=== PATIENT | male | born 1930 | race Caucasian/White ===

== ENCOUNTER 2021-06-01 10:26 | Inpatient (IN) | payer OTHER ==
[2021-06-01] MEDS ORDERED: ACETAMINOPHEN 1000 MG/100 ML BAG IVPB ONE (12:29)
[2021-06-01] MEDS ORDERED: VANCOMYCIN 1 GM in D5W (PRE-DOCKED) 1,000 MG/250 ML IVPB ONE (12:35)
[2021-06-01] MEDS ORDERED: ACETAMINOPHEN INJECTION 100 ML IVPB ONE (12:57)
[2021-06-01] MEDS ORDERED: VANCOMYCIN 1 GRAM (PRE-DOCKED) 1,000 MG/250 ML BAG IVPB ONE (12:57)
[2021-06-01 13:04] LABS: INR 1.26 (0.83-1.09); PROTHROMBIN TIME (PATIENT) 14.5 SEC (9.7-13.0)
[2021-06-01 13:07] LABS: ACTIVATED PTT 34.6 SECONDS (25.2-36.5)
[2021-06-01 13:23] LABS: ALBUMIN 3.9 g/dl (3.4-5.0); BLOOD UREA NITROGEN 15.5 mg/dL (7-18)
[2021-06-01 13:28] LABS: BILIRUBIN,TOTAL 0.6 mg/dL (0.2-1); TOT PROT 7.4 g/dl (6.4-8.2)
[2021-06-01 13:54] LABS: BASO % 0.4 % (0-2.0); EOS % 0.9 % (0-4.5); HEMATOCRIT 41.8 % (35.4-49); HEMOGLOBIN 13.7 GM/dL (11.7-16.9); LYMPH % 18.3 % (8-40); MCH 27.8 pg (25.7-33.7); MCHC 32.7 g/dl (32.0-35.9); MEAN CELL VOLUME 84.9 fl (80-96); MEAN PLT VOLUME 8.7 fl (7.5-11.1); MONO % 7.7 % (3.8-10.2); NEUT % 72.7 % (42.8-82.8); PLATELET COUNT 250 10^3/uL (134-434); RBC 4.92 M/mm3 (4.00-5.60); RDW 13.8 % (11.9-15.9); WHITE BLOOD COUNT 6.7 K/mm3 (4.0-10.0)
[2021-06-01 18:46] LABS: EPI CELLS 1 /uL (0-25.1); HYALINE CASTS 0 /uL (0-3.1); URINE APPEARANCE CLEAR; URINE BACTERIA 7 /uL (0-1359); URINE BILIRUBIN NEGATIVE (NEGATIVE); URINE COLOR YELLOW; URINE GLUCOSE (UA) NEGATIVE (NEGATIVE); URINE KETONE NEGATIVE (NEGATIVE); URINE LEUK ESTERASE NEGATIVE (NEGATIVE); URINE NITRITE NEGATIVE (NEGATIVE); URINE PROTEIN NEGATIVE (NEGATIVE); URINE RBC 45 /uL (0-23.9); URINE UROBILINOGEN 0.2 mg/dL (0.2-1.0); URINE WBC 0 /uL (0-25.8)
[2021-06-01] MEDS ORDERED: SODIUM CHLORIDE 1,000 ML IV SCH (19:00)
[2021-06-01] MEDS: ATORVASTATIN CA 10 MG TABLET (FP) PO SCH (22:02)
[2021-06-02] MEDS: VANCOMYCIN/WATER BAGS 1,250 MG/250 ML BAG IVPB SCH ×2 (01:07→01:15)
[2021-06-02 02:55] VITALS: BMI 28.9
[2021-06-02] MEDS: LEVOTHYROXINE NA 75 MCG TABLET (FP) PO SCH (06:41)
[2021-06-02 08:55] LABS: BASO % 1.1 % (0-2.0); EOS % 2.7 % (0-4.5); HEMATOCRIT 41.9 % (35.4-49); HEMOGLOBIN 13.9 GM/dL (11.7-16.9); LYMPH % 30.5 % (8-40); MCH 28.4 pg (25.7-33.7); MCHC 33.3 g/dl (32.0-35.9); MEAN CELL VOLUME 85.2 fl (80-96); MEAN PLT VOLUME 8.2 fl (7.5-11.1); NEUT % 56.7 % (42.8-82.8); PLATELET COUNT 213 10^3/uL (134-434); RBC 4.92 M/mm3 (4.00-5.60); WHITE BLOOD COUNT 4.7 K/mm3 (4.0-10.0)
[2021-06-02 09:11] LABS: CALCIUM 8.9 mg/dL (8.5-10.1)
[2021-06-02 09:12] LABS: ALBUMIN 3.5 g/dl (3.4-5.0); BLOOD UREA NITROGEN 11.2 mg/dL (7-18); MAGNESIUM 2.3 mg/dL (1.8-2.4)
[2021-06-02 09:13] LABS: PHOSPHOROUS 3.8 mg/dL (2.5-4.9)
[2021-06-02 09:14] LABS: BILIRUBIN,TOTAL 0.8 mg/dL (0.2-1); TOT PROT 6.8 g/dl (6.4-8.2)
[2021-06-02 09:15] LABS: CREATININE 0.8 mg/dL (0.55-1.3)
[2021-06-02] MEDS ORDERED: RIVAROXABAN 15 MG TABLET PO SCH (10:00)
[2021-06-02] MEDS ORDERED: PATIENT'S OWN MEDICATION (NON-FORMULARY) (Amlodipine Besylate/Benazepril [Amlodipine-Benaz PO SCH (10:00)
[2021-06-02] MEDS: FINASTERIDE 5 MG TABLET (FP) PO SCH (10:45)
[2021-06-02] MEDS: LISINOPRIL 20 MG TABLET PO SCH (10:45)
[2021-06-02] MEDS ORDERED: PIPERACILLIN/TAZOB 3.375 GM 3.375 GM in DEXTROSE 5%-WATER - 50 ML IVPB SCH ×2 (10:45→11:30)
[2021-06-02] MEDS: COLLAGENASE CLOSTRIDIUM HIST. 30 GRAMS TUBE TP SCH (10:45)
[2021-06-02] MEDS: amLODIPine BESYLATE 5 MG TABLET (FP) PO SCH (10:45)
[2021-06-02] MEDS: FAMOTIDINE 20 MG TABLET PO SCH (10:45)
[2021-06-02] MEDS: VANCOMYCIN/WATER 1,250 MG/250 ML BAG IVPB SCH (11:15)
[2021-06-02] MEDS ORDERED: DEXTROSE 5%-WATER - 50 ML IVPB ONE ×2 (11:50→17:41)
[2021-06-02] MEDS ORDERED: PIPERACILLIN/TAZOBACTAM 3.375 GM VIAL IVPB ONE ×2 (11:50→17:41)
[2021-06-02] MEDS: PIPERACILLIN/TAZOB 3.375 GM 3.375 GM in DEXTROSE 5%-WATER - 50 ML IVPB SCH (18:26)
[2021-06-02] MEDS: ATORVASTATIN CA 10 MG TABLET (FP) PO SCH (21:41)
[2021-06-03] MEDS ORDERED: PIPERACILLIN/TAZOBACTAM 3.375 GM VIAL IVPB ONE ×3 (01:42→17:31)
[2021-06-03] MEDS ORDERED: DEXTROSE 5%-WATER - 50 ML IVPB ONE ×3 (01:42→17:31)
[2021-06-03] MEDS: PIPERACILLIN/TAZOB 3.375 GM 3.375 GM in DEXTROSE 5%-WATER - 50 ML IVPB SCH ×3 (03:00→18:19)
[2021-06-03] MEDS: LEVOTHYROXINE NA 75 MCG TABLET (FP) PO SCH (06:16)
[2021-06-03 09:11] LABS: BASO % 0.5 % (0-2.0); EOS % 3.9 % (0-4.5); HEMATOCRIT 41.2 % (35.4-49); HEMOGLOBIN 13.8 GM/dL (11.7-16.9); LYMPH % 32.8 % (8-40); MCH 28.3 pg (25.7-33.7); MCHC 33.5 g/dl (32.0-35.9); MEAN CELL VOLUME 84.3 fl (80-96); MONO % 7.8 % (3.8-10.2); PLATELET COUNT 222 10^3/uL (134-434); RBC 4.89 M/mm3 (4.00-5.60); RDW 14.1 % (11.9-15.9); WHITE BLOOD COUNT 4.4 K/mm3 (4.0-10.0)
[2021-06-03 09:38] LABS: CALCIUM 9.1 mg/dL (8.5-10.1)
[2021-06-03 09:39] LABS: ALBUMIN 3.4 g/dl (3.4-5.0); BLOOD UREA NITROGEN 14.7 mg/dL (7-18); MAGNESIUM 2.3 mg/dL (1.8-2.4)
[2021-06-03 09:42] LABS: PHOSPHOROUS 4.4 mg/dL (2.5-4.9)
[2021-06-03 09:43] LABS: BILIRUBIN,TOTAL 0.8 mg/dL (0.2-1); TOT PROT 6.8 g/dl (6.4-8.2)
[2021-06-03] MEDS ORDERED: PANTOPRAZOLE 40 MG TABLET PO SCH (10:00)
[2021-06-03] MEDS: FINASTERIDE 5 MG TABLET (FP) PO SCH (10:54)
[2021-06-03] MEDS: TAMSULOSIN HCL 0.4 MG CAP PO SCH (10:54)
[2021-06-03] MEDS: amLODIPine BESYLATE 5 MG TABLET (FP) PO SCH (10:54)
[2021-06-03] MEDS: FAMOTIDINE 20 MG TABLET PO SCH (10:54)
[2021-06-03] MEDS: LISINOPRIL 20 MG TABLET PO SCH (10:54)
[2021-06-03] MEDS: COLLAGENASE CLOSTRIDIUM HIST. 30 GRAMS TUBE TP SCH (12:55)
[2021-06-03] MEDS: RIVAROXABAN 15 MG TABLET PO SCH (18:19)
[2021-06-03] MEDS: ATORVASTATIN CA 10 MG TABLET (FP) PO SCH (21:37)
[2021-06-04] MEDS ORDERED: PIPERACILLIN/TAZOBACTAM 3.375 GM VIAL IVPB ONE ×3 (00:57→18:12)
[2021-06-04] MEDS ORDERED: DEXTROSE 5%-WATER - 50 ML IVPB ONE ×3 (00:57→18:12)
[2021-06-04] MEDS: PIPERACILLIN/TAZOB 3.375 GM 3.375 GM in DEXTROSE 5%-WATER - 50 ML IVPB SCH ×3 (01:25→18:29)
[2021-06-04] MEDS: LEVOTHYROXINE NA 75 MCG TABLET (FP) PO SCH (06:05)
[2021-06-04] MEDS: FINASTERIDE 5 MG TABLET (FP) PO SCH (11:23)
[2021-06-04] MEDS: amLODIPine BESYLATE 5 MG TABLET (FP) PO SCH (11:23)
[2021-06-04] MEDS: LISINOPRIL 20 MG TABLET PO SCH (11:23)
[2021-06-04] MEDS: FAMOTIDINE 20 MG TABLET PO SCH (11:23)
[2021-06-04] MEDS: TAMSULOSIN HCL 0.4 MG CAP PO SCH (11:24)
[2021-06-04] MEDS: COLLAGENASE CLOSTRIDIUM HIST. 30 GRAMS TUBE TP SCH (12:02)
[2021-06-04] MEDS: RIVAROXABAN 15 MG TABLET PO SCH (18:29)
[2021-06-04] MEDS: ATORVASTATIN CA 10 MG TABLET (FP) PO SCH (22:16)
[2021-06-05] MEDS: PIPERACILLIN/TAZOB 3.375 GM 3.375 GM in DEXTROSE 5%-WATER - 50 ML IVPB SCH ×2 (02:30→10:59)
[2021-06-05] MEDS ORDERED: PIPERACILLIN/TAZOBACTAM 3.375 GM VIAL IVPB ONE ×2 (02:52→10:45)
[2021-06-05] MEDS ORDERED: DEXTROSE 5%-WATER - 50 ML IVPB ONE ×2 (02:52→10:45)
[2021-06-05] MEDS: LEVOTHYROXINE NA 75 MCG TABLET (FP) PO SCH (06:50)
[2021-06-05 09:11] LABS: BASO % 0.4 % (0-2.0); HEMATOCRIT 44.8 % (35.4-49); HEMOGLOBIN 14.8 GM/dL (11.7-16.9); LYMPH % 33.7 % (8-40); MCH 27.9 pg (25.7-33.7); MEAN CELL VOLUME 84.5 fl (80-96); MEAN PLT VOLUME 8.3 fl (7.5-11.1); MONO % 9.1 % (3.8-10.2); NEUT % 53.8 % (42.8-82.8); PLATELET COUNT 267 10^3/uL (134-434); RDW 13.7 % (11.9-15.9); WHITE BLOOD COUNT 4.9 K/mm3 (4.0-10.0)
[2021-06-05 09:23] LABS: CALCIUM 8.6 mg/dL (8.5-10.1)
[2021-06-05 09:24] LABS: ALBUMIN 3.5 g/dl (3.4-5.0); BLOOD UREA NITROGEN 17.3 mg/dL (7-18); MAGNESIUM 2.4 mg/dL (1.8-2.4)
[2021-06-05 09:27] LABS: PHOSPHOROUS 4.7 mg/dL (2.5-4.9)
[2021-06-05] MEDS: FINASTERIDE 5 MG TABLET (FP) PO SCH (10:58)
[2021-06-05] MEDS: TAMSULOSIN HCL 0.4 MG CAP PO SCH (10:58)
[2021-06-05] MEDS: LISINOPRIL 20 MG TABLET PO SCH (10:58)
[2021-06-05] MEDS: FAMOTIDINE 20 MG TABLET PO SCH (10:58)
[2021-06-05] MEDS: amLODIPine BESYLATE 5 MG TABLET (FP) PO SCH (10:59)
[2021-06-05] MEDS: COLLAGENASE CLOSTRIDIUM HIST. 30 GRAMS TUBE TP SCH (10:59)
[2021-06-05 16:19] VITALS: BP 124/60; PULSE 72; TEMP 98
== END 2021-06-05 16:21 | disposition home health service (06) | DRG 602 ==
LOC: JER 10:26 → JERBED 12:23 → J8W 19:53
PROVIDERS: ADMIT Internal Medicine; ATTEND Internal Medicine
DX: L03.116 Cellulitis of left lower limb (principal); U07.1 COVID-19; E87.1 Hypo-osmolality and hyponatremia; I10 Essential (primary) hypertension; E03.9 Hypothyroidism, unspecified; N40.0 Benign prostatic hyperplasia without lower urinary tract symptoms
CPT/HCPCS: 36415; 73610-TC-LT-FY; 73718-TC-LT; 80053; 81003; 83735; 84100; 84300; 85025; 85610; 85651; 85730; 86140; 86850; 86900; 86901; 87040; 87070; 87081; 87186; 87205; 93005; 93010; 97116-GP; 97161-GP; 99285-25; C9803; J0131; U0003; U0005